=== PATIENT | male | born 2000 | race Caucasian/White ===

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

== ENCOUNTER 2019-08-10 21:06 | Observation (INO) | payer OTHER ==
[2019-08-10] MEDS ORDERED: ACETAMINOPHEN TAB 325 MG TAB PO STA (21:38)
[2019-08-10] MEDS ORDERED: SODIUM CHLORIDE 0.45% 1,000 ML IV SCH (21:45)
[2019-08-10] MEDS ORDERED: HYDROcodone/APAP 5-325MG 1 EACH TAB PO PRN (21:47)
[2019-08-10] MEDS ORDERED: MORPHINE SULFATE 4 MG/ML SYRINGE IV PRN (21:47)
[2019-08-10] MEDS ORDERED: IBUPROFEN 400 MG TAB PO PRN (21:47)
[2019-08-10] MEDS ORDERED: NALOXONE 0.4 MG/ML 1 ML VIAL IV PRN (21:47)
[2019-08-10] MEDS ORDERED: ALPRAZolam 0.25 MG TAB PO PRN (21:47)
--- NOTE | 2019-08-10 21:47 | ED ---
Skin/Abscess/FB HPI - General Chief complaint: Skin/Abscess/Foreign Body Stated complaint: [facility] R Hand Injury Time Seen by Provider: 08/10/19 21:19 Source: patient Mode of arrival: ambulatory Limitations: no limitations - History of Present Illness Initial comments: Patient is a 19-year-old male presenting to the emergency department with chief complaint of a hand infection. Patient states about one week ago he developed a small abrasion on the right second digit and gradually his developed redness and swelling in the finger which has began to spread approximately along the right upper extremity. Patient does report striking grown-up the right upper extremity. Denies any night sweats fevers or chills. States that he went to the urgent care today and was given a tetanus shot along with a "shot to decrease swelling" and given a prescription of antibiotics which he has not taken yet. Does report some tenderness at the site of injury - Related Data Home Medications Medication Instructions Recorded Confirmed Cetirizine HCl 10 mg PO DAILY PRN 09/03/15 09/04/15 Allergies Allergy/AdvReac Type Severity Reaction Status Date / Time sulfamethoxazole Allergy Rash/Hives Verified 08/10/19 21:16 [From ] trimethoprim [From ] Allergy Rash/Hives Verified 08/10/19 21:16 Review of Systems ROS Statement: Those systems with pertinent positive or pertinent negative responses have been documented in the HPI. ROS Other: All systems not noted in ROS Statement are negative. Past Medical History Past Medical History: No Reported History History of Any Multi-Drug Resistant Organisms: None Reported Past Surgical History: Ear Surgery, Tonsillectomy Past Psychological History: ADD/ADHD Smoking Status: Never smoker Past Alcohol Use History: None Reported Past Drug Use History: None Reported General Exam Limitations: no limitations General appearance: alert, in no apparent distress Head exam: Present: atraumatic, normocephalic, normal inspection Eye exam: Present: normal appearance, PERRL, EOMI Pupils: Present: normal accommodation ENT exam: Present: normal exam, normal oropharynx, mucous membranes moist, TM's normal bilaterally, normal external ear exam Neck exam: Present: normal inspection, full ROM Respiratory exam: Present: normal lung sounds bilaterally Cardiovascular Exam: Present: regular rate, normal rhythm, normal heart sounds Extremities exam: Present: full ROM, tenderness (Tenderness at the site of swelling), normal capillary refill, other (+2 ulnar radial pulses bilaterally.). Absent: normal inspection (Swelling along the second right digit. Small injury noted to the PIP joint. Surrounding erythema or swelling proximally in a streaking pattern along the right upper extremity.) Back exam: Present: normal inspection, full ROM Neurological exam: Present: alert, oriented X3 Psychiatric exam: Present: normal affect, normal mood Skin exam: Present: warm, dry, intact, normal color Course Vital Signs 08/10/19 21:13 Temperature 99.8 F H Pulse Rate 135 H Respiratory 22 Rate Blood Pressure 154/82 O2 Sat by Pulse 99 Oximetry Medical Decision Making - Medical Decision Making patient is a 19-year-old male presenting to the emergency department with a chief complaint of a hand infection. He had a small abrasion about one week ago which is now developed into an infection with swelling and erythema at the right second digit along with a streaking redness along the right upper extremity. Suspecting this is lymphangitis. Laboratory work obtained. Patient given Tylenol. Blood cultures and lactate obtained. Patient will be started Unasyn. Patient will be admitted for further management. Case discussed with Admitting is Dr. reilly Disposition Clinical Impression: Cellulitis, finger, Acute lymphangitis of forearm Disposition: ADMITTED IP TO THIS HOSP Condition: Stable Instructions (If sedation given, give patient instructions): Cellulitis (DC) Additional Instructions: Patient will be admitted Is patient prescribed a controlled substance at d/c from ED?: No Referrals: Adan Grigsby DO [Primary Care Provider] - 1-2 days Time of Disposition: 21:47
[2019-08-10] MEDS ORDERED: AMPICILLIN-SULBACTAM 3 GM in SODIUM CHLORIDE 0.9% 100 ML IVPB ONE (22:00)
[2019-08-10 22:32] LABS: ALT 38 U/L (4-49); AST 35 U/L (17-59); African American GFR (CKD) >90 (>60 ml/min/1.73 sqM); Albumin 5.1 g/dL (3.5-5.0); Alkaline Phosphatase 67 U/L (38-126); Anion Gap 12 mmol/L; Blood Urea Nitrogen 17 mg/dL (9-20); Carbon Dioxide 25 mmol/L (22-30); Chloride 102 mmol/L (98-107); Glucose 104 mg/dL (74-99); Non-African American GFR(CKD) >90 (>60 ml/min/1.73 sqM); Potassium 4.1 mmol/L (3.5-5.1); Sodium 139 mmol/L (137-145); Total Bilirubin 1.1 mg/dL (0.2-1.3); Total Protein 7.7 g/dL (6.3-8.2)
[2019-08-10 22:52] LABS: Basophils # (A) 0.3 k/uL (0-0.2); Basophils % (A) 3 %; Eosinophils # (A) 0.2 k/uL (0-0.7); Eosinophils % (A) 1 %; HCT 47.6 % (39.0-53.0); HGB 16.1 gm/dL (13.0-17.5); Lymphocytes # (A) 0.6 k/uL (1.0-4.8); Lymphocytes % (A) 5 %; MCH 29.2 pg (25.0-35.0); MCHC 33.9 g/dL (31.0-37.0); Mean Platelet Volume 7.4; Monocytes # (A) 0.7 k/uL (0-1.0); Monocytes % (A) 6 %; Neutrophils # (A) 10.8 k/uL (1.3-7.7); Neutrophils % (A) 85 %; Platelet Count 212 k/uL (150-450); RBC 5.53 m/uL (4.30-5.90); RDW 12.6 % (11.5-15.5); WBC 12.8 k/uL (3.8-10.6)
[2019-08-10] MEDS: SODIUM CHLORIDE 0.9% 1,000 ML IV SCH (22:52)
[2019-08-11] MEDS ORDERED: ONDANSETRON 4 MG/2 ML VIAL IVP PRN (07:30)
--- NOTE | 2019-08-11 14:01 | P.CONS ---
History of Present Illness - Reason for Consult Consult date: 08/11/19 right arm cellulitis Requesting physician: Sloan De Souza - Chief Complaint right arm swelling and redness x 2 days - History of Present Illness Patient is a 19-year male who apparently did have a cut to his right index finger while at work last week there was no significant bleeding on the swelling or redness last Thursday the patient having a swelling or redness to the right index finger that has been spreading to the hand and up his upper arm the area was swollen red and painful describes the pain to be throbbing intensity about 7-8 out of 10 and no radiation the patient went to an urgent care with the patient was given a shot of antibiotics and subsequently referred to hospital for admission on arrival to the hospital the patient have low-grade fever of 99.8 patient was slightly tachycardic with heart rate of 111 white count was elevated 12.8 patient received 1 dose of Unasyn in the ER subsequent has been admitted to hospital infectious was consulted for further recommendation regarding antibiotic therapy. Review of Systems Positive point has been mentioned in HPI rest of systems negative Past Medical History Past Medical History: No Reported History History of Any Multi-Drug Resistant Organisms: None Reported Past Surgical History: Ear Surgery, Tonsillectomy Past Psychological History: ADD/ADHD Smoking Status: Never smoker Past Alcohol Use History: None Reported Past Drug Use History: None Reported Medications and Allergies Home Medications Medication Instructions Recorded Confirmed Type Ergocalciferol (Vitamin D2) 50,000 unit PO FR 08/10/19 08/10/19 History [Vitamin D2] Allergies Allergy/AdvReac Type Severity Reaction Status Date / Time sulfamethoxazole Allergy Unknown Verified 08/10/19 22:32 [From ] Childhood trimethoprim [From ] Allergy Unknown Verified 08/10/19 22:32 Childhood Physical Exam Vitals: Vital Signs Temp Pulse Pulse Resp BP BP Pulse Ox 08/11/19 08:30 60 16 08/11/19 07:00 98.1 F 60 16 146/69 96 08/11/19 01:11 98.9 F 109 H 17 142/71 97 08/10/19 22:59 98.0 F 111 H 18 137/75 100 08/10/19 21:16 98.3 F 08/10/19 21:13 99.8 F H 135 H 22 154/82 99 Intake and Output 08/10/19 08/11/19 08/11/19 22:59 06:59 14:59 Other: Weight 76.43 kg GENERAL DESCRIPTION: Young male lying in bed, no distress. No tachypnea or accessory muscle of respiration use. HEENT: Shows Pallor , no scleral icterus. Oral mucous membrane is dry. No phary ngeal erythema or thrush NECK: Trachea central, no thyromegaly. LUNGS: Unlabored breathing. Clear to auscultation anteriorly. No wheeze or crackle. HEART: S1, S2, regular rate and rhythm. No loud murmur ABDOMEN: Soft, no tenderness , guarding or rigidity, no organomegaly EXTREMITIES: Right hand dorsum forearm did have a swelling and redness with evidence of lymphangitis spreading to the medial aspect of upper arm no induration no drainage. SKIN: No rash, no masses palpable. NEUROLOGICAL: The patient is awake, alert, oriented x3, mood and affect normal. Results CBC & Chem 7: 08/10/19 22:40 08/10/19 21:55 Labs: Abnormal Lab Results - Last 24 Hours (Table) 08/10/19 08/10/19 Range/Units 21:55 22:40 WBC 12.8 H (3.8-10.6) k/uL Neutrophils # 10.8 H (1.3-7.7) k/uL Lymphocytes # 0.6 L (1.0-4.8) k/uL Basophils # 0.3 H (0-0.2) k/uL Glucose 104 H (74-99) mg/dL Albumin 5.1 H (3.5-5.0) g/dL Assessment and Plan Assessment: 1-patient with right arm cellulitis more likely started from injury to the right index finger likely from gram-positive skin jordana such as strep in view of clinical improvement with the Unasyn that the patient received in the ER last night (1) Cellulitis of right arm Current Visit: Yes Status: Acute Code(s): L03.113 - CELLULITIS OF RIGHT UPPER LIMB SNOMED Code(s): 411677468 Plan: 1-marked area of the redness right arm 2-we will start the patient cefazolin 2 g every 8 hour We will follow on clinical condition and cultures to further adjust medication if needed Thank you for this consultation will follow this patient along with you Time with Patient: Greater than 30
--- NOTE | 2019-08-11 16:07 | P.HPIM ---
History of Present Illness H&P Date: 08/11/19 Chief Complaint: Redness swelling right hand History of presenting complaint: This is a pleasant 19-year-old patient of Dr. Caridad Grigsby." Has otherwise. About a week ago he was pulling things out of a box and hit his hand against a brick wall the back of his hand and make much of it that time. Subsequently his right hand middle index started swelling getting red. He had a breakdown of skin near the proximal interphalangeal joint. It progressed to become more sw elling red and has progressed in the right upper extremity. And S and patient decided to come in. There is no fever and chills. Her nausea vomiting. Somewhat painful. Patient started on IV Unasyn in the ER. Patient denies use of any recreational drugs. Since admission the redness started to come down. The redness is gone up to his just below the armpit. Also his right index finger warts rather swollen in the middle Review of systems: GEN.: None EYES: None HEENT: None NECK: None RESPIRATORY: None CARDIOVASCULAR: None GASTROINTESTINAL: None GENITOURINARY: None MUSCULOSKELETAL: As above] LYMPHATICS: As above HEMATOLOGICAL: None PSYCHIATRY: None NEUROLOGICAL: None Past medical history to include: ADD Social history: Lives with his father. 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 Denies any smoking or alcohol. Denies any use of recreational drugs. Family history: Reviewed, noncontributory to presentation Physical examination: VITAL SIGNS: 99.8, 135, 22, 154/82, 99% on room air GENERAL: BMI 24.2, sitting up, comfortable. EYES: Pupils equal. Conjunctiva normal. HEENT: External appearance of nose and ears normal, oral cavity grossly normal. NECK: JVD not raised; masses not palpable. HEART: First and second heart sounds are normal; no edema. LUNGS: Respiratory rate normal; clear to auscultation. ABDOMEN: Soft, nontender, liver spleen not palpable, no masses palpable. PSYCH: Alert and oriented x3; mood and affect normal. NEUROLOGICAL: Cranial nerves grossly intact; no facial asymmetry, power and sensation grossly intact. EXTREMITY: Patient got up breakdown of the skin with us On the dorsum of the proximal interphalangeal joint right hand of the index finger with swelling around the joint extending proximally to the hand and a streak of redness going up to below the left armpit INVESTIGATIONS, reviewed in the clinical context: White count 12.8 hemoglobin 16.1 potassium 4.1 Assessment: -Acute cellulitis of the right hand index finger extending to the hand with associated lymphangitis going up to the arm, causing sepsis on presentation Plan: Patient was seen by ID. Started on IV Ancef. Getting IV fluids also. Blood naproxen to 50 mg every 8 for and to the intermediate affect. Told the patient to keep the arm elevated above the level of the heart. His pain swelling is started to come down since presentation. Patient otherwise ambulatory. Patient will need at least 24-48 hours of IV antibiotics to significant improvement is noted. Also given IV fluids. Past Medical History Past Medical History: No Reported History History of Any Multi-Drug Resistant Organisms: None Reported Past Surgical History: Ear Surgery, Tonsillectomy Past Psychological History: ADD/ADHD Smoking Status: Never smoker Past Alcohol Use History: None Reported Past Drug Use History: None Reported Medications and Allergies Home Medications Medication Instructions Recorded Confirmed Type Ergocalciferol (Vitamin D2) 50,000 unit PO FR 08/10/19 08/10/19 History [Vitamin D2] Allergies Allergy/AdvReac Type Severity Reaction Status Date / Time sulfamethoxazole Allergy Unknown Verified 08/10/19 22:32 [From ] Childhood trimethoprim [From ] Allergy Unknown Verified 08/10/19 22:32 Childhood Physical Exam Vitals: Vital Signs Temp Pulse Pulse Resp BP BP Pulse Ox 08/11/19 08:30 60 16 08/11/19 07:00 98.1 F 60 16 146/69 96 08/11/19 01:11 98.9 F 109 H 17 142/71 97 08/10/19 22:59 98.0 F 111 H 18 137/75 100 08/10/19 21:16 98.3 F 08/10/19 21:13 99.8 F H 135 H 22 154/82 99 Intake and Output 08/10/19 08/11/19 08/11/19 22:59 06:59 14:59 Other: Weight 76.43 kg Results CBC & Chem 7: 08/10/19 22:40 08/10/19 21:55 Labs: Abnormal Lab Results - Last 24 Hours (Table) 08/10/19 08/10/19 Range/Units 21:55 22:40 WBC 12.8 H (3.8-10.6) k/uL Neutrophils # 10.8 H (1.3-7.7) k/uL Lymphocytes # 0.6 L (1.0-4.8) k/uL Basophils # 0.3 H (0-0.2) k/uL Glucose 104 H (74-99) mg/dL Albumin 5.1 H (3.5-5.0) g/dL Thrombosis Risk Factor Assmnt - Choose All That Apply Any of the Below Risk Factors Present?: No
[2019-08-11] MEDS: NAPROXEN 250 MG TAB PO SCH ×2 (18:04→22:34)
[2019-08-11] MEDS: SODIUM CHLORIDE 0.9% 1,000 ML IV SCH ×2 (18:45→19:36)
[2019-08-12] MEDS: SODIUM CHLORIDE 0.9% 1,000 ML IV SCH (05:09)
[2019-08-12 08:13] VITALS: BP 127/70; PULSE 63; RESP 15; TEMP 97.7
[2019-08-12] MEDS: NAPROXEN 250 MG TAB PO SCH (09:28)
--- NOTE | 2019-08-12 12:40 | PN ---
PROGRESS NOTE DATE OF SERVICE: 08/12/2019 REASON FOR FOLLOWUP: Right arm cellulitis and lymphangitis. INTERVAL HISTORY: The patient is currently afebrile. Patient has been breathing comfortably. Denies having any chest pain, shortness of breath or cough. No nausea, vomiting. Right arm swelling and redness has resolved. PHYSICAL EXAMINATION: Blood pressure 127/70 with a pulse of 60, temperature is 97.7, he is 98% on room air. General description is a young male up in the chair, in no distress. RESPIRATORY SYSTEM: Unlabored breathing, clear to auscultation anteriorly. HEART: S1, S2. Regular rate and rhythm. ABDOMEN: Soft, no tenderness. EXTREMITIES: Right arm cellulitis, much improved. LABS: Blood culture negative. No CBC was done today. DIAGNOSTIC IMPRESSION AND PLAN: Patient with right arm cellulitis likely from infection of the index finger. Currently no evidence of any abscess, clinically responded to Cefazolin. We will switch over to Keflex 500 mg q.6 hours for 7-10 days with close outpatient followup. MMODL / IJN: [id number] /
--- NOTE | 2019-08-12 22:25 | P.DS ---
Providers Date of admission: 08/10/19 21:32 Expected date of discharge: 08/12/19 Attending physician: Sloan De Souza Consults: 08/11/19 07:30 Consult Physician Urgent Consulting Provider: Raji Mehta Consult Reason/Comments: Cellulitis, antibiotics Do you want consulting provider notified?: Yes Primary care physician: Adan Grigsby [facility] Course: Chief Complaint: Redness swelling right hand History of presenting complaint: This is a pleasant 19-year-old patient of Dr. Caridad Grigsby." Has otherwise. About a week ago he was pulling things out of a box and hit his hand against a brick wall the back of his hand and make much of it that time. Subsequently his right hand middle index started swelling getting red. He had a breakdown of s kin near the proximal interphalangeal joint. It progressed to become more swelling red and has progressed in the right upper extremity. And S and patient decided to come in. There is no fever and chills. Her nausea vomiting. Somewhat painful. Patient started on IV Unasyn in the ER. Patient denies use of any recreational drugs. Since admission the redness started to come down. The redness is gone up to his just below the armpit. Also his right index finger warts rather swollen in the middle. Patient's cellulitis and lymphangitis responded very well to IV Ancef. Today-pain and redness swelling greatly improved and resolved. Able to move his fingers much better. Very keen to go home. Discussed with Dr. garcia from [place]. [place] to [place]. Consultants: Dr. mehta from [place] Physical examination: VITAL SIGNS: 97.7, 63, 16, 127/70, 98% room air GENERAL: Sitting up comfortable EYES: Pupils equal. Conjunctiva normal. HEENT: External appearance of nose and ears normal, oral cavity grossly normal. NECK: JVD not raised; masses not palpable. HEART: First and second heart sounds are normal; no edema. LUNGS: Respiratory rate normal; clear to auscultation. ABDOMEN: Soft, nontender, liver spleen not palpable, no masses palpable. PSYCH: Alert and oriented x3; mood and affect normal. EXTREMITY: Pain and redness swelling nearly resolved. INVESTIGATIONS, reviewed in the clinical context: White count 12.8 hemoglobin 16.1 potassium 4.1 Assessment: -Acute cellulitis of the right hand index finger extending to the hand with associated lymphangitis going up to the arm, causing sepsis on presentation Disposition: Home Patient Condition at Discharge: Stable Plan - Discharge Summary New Discharge Prescriptions: New Cephalexin [Keflex] 500 mg PO Q6HR #30 cap Naproxen [Naprosyn] 250 mg PO TID #20 tab Continue Ergocalciferol (Vitamin D2) [Vitamin D2] 50,000 unit PO FR Discharge Medication List Ergocalciferol (Vitamin D2) [Vitamin D2] 50,000 unit PO FR 08/10/19 [History] Cephalexin [Keflex] 500 mg PO Q6HR #30 cap 08/12/19 [Rx] Naproxen [Naprosyn] 250 mg PO TID #20 tab 08/12/19 [Rx] Follow up Appointment(s)/Referral(s): Adan Grigsby DO [Primary Care Provider] - 08/18/19 2:00 pm (With [employer]) Patient Instructions/Handouts: Cellulitis (DC) Activity/Diet/Wound Care/Special Instructions: Patient will be admitted Discharge/Stand Alone Forms: Work/School Release / Restrict Discharge Disposition: HOME SELF-CARE
== END 2019-08-12 14:00 | disposition home or self-care (01) ==
LOC: EC 21:06 → 4SSUR 21:32
PROVIDERS: ADMIT Hospitalist; ATTEND Hospitalist
DX: L03.113 Cellulitis of right upper limb (principal); I89.1 Lymphangitis; A41.9 Sepsis, unspecified organism; S60.410A Abrasion of right index finger, initial encounter; F90.9 Attention-deficit hyperactivity disorder, unspecified type; Z79.899 Other long term (current) drug therapy; Z79.2 Long term (current) use of antibiotics; Z88.2 Allergy status to sulfonamides; Z88.1 Allergy status to other antibiotic agents
CPT/HCPCS: 96366 ×2; 96367; 96375; 96365; 99284; 80053; 83605; 85025; 87040; G0378 ×3; J0690 ×2; J2405; J0295

== ENCOUNTER 2021-02-16 18:28 | Emergency (ER) | payer OTHER ==
[2021-02-16 18:53] VITALS: BP 147/91; PULSE 71; RESP 20; TEMP 98.1
[2021-02-16] MEDS ORDERED: ACETAMINOPHEN TAB 500 MG TAB PO STA (19:25)
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
== END 2021-02-16 19:32 | disposition home or self-care (01) ==
LOC: EC 18:28
DX: S80.01XA Contusion of right knee, initial encounter (principal); Z88.2 Allergy status to sulfonamides; V89.2XXA Person injured in unspecified motor-vehicle accident, traffic, initial encounter; Y92.89 Other specified places as the place of occurrence of the external cause
CPT/HCPCS: 99283

== ENCOUNTER → 2023-12-22 | Outpatient (CLI) | payer OTHER ==
--- NOTE | 2023-12-22 10:14 | XR ---
EXAMINATION TYPE: XR lumbar spine 2 or 3V DATE OF EXAM: 12/22/2023 9:41 AM CLINICAL INDICATION:Male, 23 years old with history of S39.012D STRAIN OF MUSCLE, FASCIA AND TENDON O F LO; COMPARISON: None TECHNIQUE: XR lumbar spine 2 or 3V - Frontal, lateral and coned in L5-S1 lateral views of the spine. FINDINGS: No evidence of any acute osseous pathology. No evidence of loss of vertebral body height i s seen. There is normal alignment of the lumbar vertebral bodies. Scattered disc space narrowing. Mul tilevel marginal osteophyte formation throughout the visualized spine. There is facet joint arthropat hy throughout the spine. Scattered at least mild neural foraminal stenosis. IMPRESSION: 1. No acute fracture. 2. Mild multilevel disc degeneration.
== END | disposition home or self-care (01) ==
LOC: RADXRMAIN 09:27
PROVIDERS: ATTEND Emergency Medicine
DX: M51.36 Other intervertebral disc degeneration, lumbar region (principal); S39.012D Strain of muscle, fascia and tendon of lower back, subsequent encounter
CPT/HCPCS: 72100

== ENCOUNTER 2024-08-03 23:40 | Emergency (ER) | payer OTHER ==
[2024-08-03 23:45] VITALS: RESP 18
[2024-08-03] MEDS ORDERED: TETANUS-DIPHTHERIA TOX (PF) 0.5 ML VIAL IM ONE (23:51)
--- NOTE | 2024-08-03 23:56 | ED ---
Wound/Laceration HPI - General Chief Complaint: Wound/Laceration Stated Complaint: L Elbow Injury Time Seen by Provider: 08/03/24 23:48 Source: patient, RN notes reviewed Mode of arrival: ambulatory - History of Present Illness Initial Comments: This is a 24-year-old male presenting with left elbow injury following fall at 2300 this evening. Patient states he was walking home with groceries when he slipped and fell backwards on ice, striking his left elbow onto the sidewalk. Denies striking head, loss of consciousness, headache, neck pain. States he is able to fully utilize left elbow without significant LROM or pain (12/13). Patient states he is unsure of tetanus vaccination status. Denies other injuries. Onset/Timin -: minutes(s) Time: 23:00 Extremity Location: Left: Elbow Place: outdoors Patient Tetanus UTD: No Context: fall - Related Data Home Medications Medication Instructions Recorded Confirmed Ergocalciferol (Vitamin D2) 50,000 unit PO FR 08/10/19 08/10/19 [Vitamin D2 (50,000 Iu)] Previous Rx's Medication Instructions Recorded Naproxen [Naprosyn] 250 mg PO TID #20 tab 08/12/19 cephALEXin [Keflex] 500 mg PO Q6HR #30 cap 08/12/19 Allergies Allergy/AdvReac Type Severity Reaction Status Date / Time naproxen Allergy Rash/Hives Verified 08/03/24 23:45 Sulfa (Sulfonamide Allergy Rash/Hives Verified 08/03/24 23:45 Antibiotics) sulfamethoxazole Allergy Unknown Verified 02/16/21 18:53 [From ] Childhood trimethoprim [From ] Allergy Unknown Verified 02/16/21 18:53 Childhood Review of Systems ROS Statement: Those systems with pertinent positive or pertinent negative responses have been documented in the HPI. ROS Other: All systems not noted in ROS Statement are negative. Past Medical History Past Medical History: No Reported History History of Any Multi-Drug Resistant Organisms: None Reported Past Surgical History: Ear Surgery, Tonsillectomy Past Psychological History: ADD/ADHD Smoking Status: Never smoker Past Alcohol Use History: None Reported Past Drug Use History: None Reported General Exam General appearance: alert, in no apparent distress Head exam: Present: atraumatic, normocephalic, normal inspection Eye exam: Present: normal appearance, PERRL, EOMI. Absent: scleral icterus, conjunctival injection, periorbital swelling ENT exam: Present: normal exam, mucous membranes moist Neck exam: Present: normal inspection. Absent: tenderness, meningismus, lymphadenopathy Respiratory exam: Present: normal lung sounds bilaterally. Absent: respiratory distress, wheezes, rales, rhonchi, stridor Cardiovascular Exam: Present: regular rate, normal rhythm, normal heart sounds. Absent: systolic murmur, diastolic murmur, rubs, gallop, clicks GI/Abdominal exam: Present: soft, normal bowel sounds. Absent: distended, tenderness, guarding, rebound, rigid Extremities exam: Present: full ROM, tenderness, normal capillary refill, other (1.5 cm stellate laceration at point of left elbow with localized tenderness. Negative crepitus, deformity, bursitis, obvious foreign body). Absent: pedal edema, joint swelling, calf tenderness Back exam: Present: normal inspection Neurological exam: Present: alert, oriented X3, CN II-XII intact Psychiatric exam: Present: normal affect, normal mood Skin exam: Present: warm, dry, intact, normal color. Absent: rash Course Vital Signs 08/03/24 08/04/24 23:42 01:57 Temperature 98.0 F 98.2 F Pulse Rate 83 80 Respiratory 18 18 Rate Blood Pressure 147/86 133/84 O2 Sat by Pulse 100 99 Oximetry Procedures - Laceration Laceration #1 Consent Obtained: verbal consent Indication: laceration Site: upper extremity Size (cm): 2 Description: stellate Depth: simple, single layer Anesthetic Used: lidocaine 1% Anesthesia Technique: local infiltration Amount (mls): 3 Pre-repair: wound explored, irrigated extensively Type of Sutures: nylon Size of Sutures: 4-0 Number of Sutures: 3 Technique: simple, interrupted Patient Tolerated Procedure: well Medical Decision Making - Medical Decision Making Was pt. sent in by a medical professional or institution (, PA, MANAGER LEAD[employer]ELOPMENT, urgent care, hospital, or fdc...) When possible be specific @ -No Did you speak to anyone other than the patient for history (EMS, parent, family, police, friend...)? What history was obtained from this source @ -No Did you review nursing and triage notes (agree or disagree)? Why? @ -I reviewed and agree with nursing and triage notes Were old charts reviewed (outside hosp., previous admission, EMS record, old EKG, old radiological studies, urgent care reports/EKG's, fdc records)? Report findings @ -No old charts were reviewed Differential Diagnosis (chest pain, altered mental status, abdominal pain women, abdominal pain men, vaginal bleeding, weakness, fever, dyspnea, syncope, headache, dizziness, GI bleed, back pain, seizure, CVA, palpatations, mental health, musculoskeletal)? @ -Differential Musculoskeletal Muscular strain, contusion, ligament sprain, fracture, arthritis, septic arthritis, bursitis, cellulitis, muscle spasm, nerve compression, DVT, arterial occlusion, herpes zoster, electrolyte abnormality, tumor.... This is not meant to be in all inclusive list EKG interpreted by me (3pts min.). @ -Not done X-rays interpreted by me (1pt min.). @ -Left elbow x-ray shows no acute fracture or dislocation CT interpreted by me (1pt min.). @ -None done U/S interpreted by me (1pt. min.). @ -None done What testing was considered but not performed or refused? (CT, X-rays, U/S, labs)? Why? @ -None What meds were considered but not given or refused? Why? @ -None Did you discuss the management of the patient with other professionals (professionals i.e. , PA, [employer], lab, RT, psych nurse, social insurance analyst, cold press operator, teacher, dog license officer supervisor, case maker)? Give summary @ -No Was smoking cessation discussed for >3mins.? @ -No Was critical care preformed (if so, how long)? @ -No Were there social determinants of health that impacted care today? How? (Homelessness, low income, unemployed, alcoholism, drug addiction, transportation, low edu. Level, literacy, decrease access to med. care, halfway, rehab)? @ -No Was there de-escalation of care discussed even if they declined (Discuss DNR or withdrawal of care, Hospice)? DNR status @ -No What co-morbidities impacted this encounter? (DM, HTN, Smoking, COPD, CAD, Cancer, CVA, ARF, Chemo, Hep., AIDS, mental health diagnosis, sleep apnea, morbid obesity)? @ -None Was patient admitted / discharged? Hospital course, mention meds given and route, prescriptions, significant lab abnormalities, going to OR and other pertinent info. @ -Left elbow x-ray shows no acute fracture or dislocation. Wound sufficiently anesthetized before flushing copiously with sterile water. Sutured laceration without complication under sterile conditions. Wrapped with 4 x 4 gauze, Kerlix gauze and Andreas wrap. Suture care instructions provided. Advised follow-up in 10 to 14 days for suture removal. Discussed patient with Dr. Dowell. Undiagnosed new problem with uncertain prognosis? @ -No Drug Therapy requiring intensive monitoring for toxicity (Heparin, Nitro, Insulin, Cardizem)? @ -No Were any procedures done? @ -Sutured elbow laceration under sterile conditions Diagnosis/symptom? @ -Contusion with laceration Acute, or Chronic, or Acute on Chronic? @ -Acute Uncomplicated (without systemic symptoms) or Complicated (systemic symptoms)? @ -Uncomplicated Side effects of treatment? @ -No Exacerbation, Progression, or Severe Exacerbation? @ -No Poses a threat to life or bodily function? How? (Chest pain, [place], CA, pneumonia, PE, COPD, DKA, ARF, appy, cholecystitis, CVA, Diverticulitis, Homicidal, Suicidal, threat to staff... and all critical care pts) @ -No Disposition Clinical Impression: Laceration Disposition: HOME SELF-CARE Condition: Good Instructions (If sedation given, give patient instructions): Care For Your Stitches (ED) Additional Instructions: Follow-up for suture removal in 10 to 14 days. Is patient prescribed a controlled substance at d/c from ED?: No Referrals: Sandhya Stanley NPC [REFERRING] - 1-2 days Time of Disposition: 01:16
[2024-08-04] MEDS: DIPH,PERTUS(ACELL)TETVAC-LF 0.5 ML VIAL IM ONE (00:11)
[2024-08-04] MEDS: LIDOCAINE 1% INJ 10MG/ML (20 ML MDV) SQ ONE (00:13)
--- NOTE | 2024-08-04 00:51 | XR ---
EXAM: XR Left Elbow Complete, 3 Views CLINICAL HISTORY: Fall onto concrete TECHNIQUE: Frontal, lateral and oblique views of the left elbow. COMPARISON: No relevant prior studies available. FINDINGS: Bones/joints: No fracture or dislocation. Soft tissues: Unremarkable. IMPRESSION: No fracture
[2024-08-04 01:58] VITALS: BP 133/84; PULSE 80; TEMP 98.2
== END 2024-08-04 03:52 | disposition home or self-care (01) ==
LOC: EC 23:40
DX: S51.012A Laceration without foreign body of left elbow, initial encounter (principal); Z88.6 Allergy status to analgesic agent; Z88.2 Allergy status to sulfonamides; Z88.1 Allergy status to other antibiotic agents; Z23 Encounter for immunization; W00.0XXA Fall on same level due to ice and snow, initial encounter; Y93.01 Activity, walking, marching and hiking
CPT/HCPCS: 73080; 90715; 99283; 12001; 90471; J2003